=== PATIENT | female | born 1990 | race Caucasian/White ===

== ENCOUNTER 2019-01-24 21:17 | Emergency (ER) | payer OTHER ==
[~2019-01-24] VITALS: Ht 157.5 cm; Wt 56.7 kg
[2019-01-25] MEDS ORDERED: INTESTINEX680 M1 PO (08:16)
== END 2019-01-25 08:22 | disposition home or self-care (01) ==
LOC: ER 21:17
DX: O26.891 Other specified pregnancy related conditions, first trimester (principal); A08.4 Viral intestinal infection, unspecified; Z34.01 Encounter for supervision of normal first pregnancy, first trimester

== ENCOUNTER → 2019-03-08 | Outpatient (CLI) | payer OTHER ==
[~2019-03-08] MED LIST: INTESTINEX680 M1 PO
== END | disposition home or self-care (01) ==
LOC: PRENATAL 13:00
DX: O28.1 Abnormal biochemical finding on antenatal screening of mother (principal); O35.3XX1 Maternal care for (suspected) damage to fetus from viral disease in mother, fetus 1

== ENCOUNTER → 2019-03-15 | Outpatient (CLI) | payer OTHER | END | disposition home or self-care (01) | LOC: PRENATAL 09:47 | DX: O28.1 Abnormal biochemical finding on antenatal screening of mother (principal) ==

== ENCOUNTER 2019-07-03 10:36 | Inpatient (IN) | payer OTHER ==
[~2019-07-03] VITALS: Ht 160 cm; Wt 3.6 kg
[2019-08-14] MEDS ORDERED: OBSTETRIX ONE1 EACH PO (08:31)
== END 2019-08-18 14:18 | disposition home or self-care (01) | DRG 788 ==
LOC: OB/GYN 08-08 12:15 → LDR 08-14 07:19 → SURG-SUITE 08-14 07:19 → OB/GYN 08-14 12:15 → SURG-SUITE 08-15 16:51
PROVIDERS: ADMIT Obstetrics & Gynecology
PROC: 10D00Z1 Extraction of Products of Conception, Low, Open Approach (ICD-10-PCS; principal; 2019-08-14)
PROC: 3E0P7VZ Introduction of Hormone into Female Reproductive, Via Natural or Artificial Opening (ICD-10-PCS; 2019-08-14)
PROC: 3E033VJ Introduction of Other Hormone into Peripheral Vein, Percutaneous Approach (ICD-10-PCS; 2019-08-14)
PROC: 4A1HXCZ Monitoring of Products of Conception, Cardiac Rate, External Approach (ICD-10-PCS; 2019-08-14)
DX: O65.4 Obstructed labor due to fetopelvic disproportion, unspecified (principal); Z3A.40 40 weeks gestation of pregnancy; Z37.0 Single live birth